=== PATIENT | female | born 1990 | race Hispanic/Latino ===

== ENCOUNTER 2020-05-23 00:46 | Emergency (ER) | payer MEDICAID, OTHER ==
[~2020-05-23 00:46] MED LIST: PREN-196 PO
[2020-05-23 01:59] LABS: BILIRUBIN,URINE Negative (NEGATIVE); COLOR,URINE Yellow (YELLOW); GLUCOSE, URINE (UA) Negative (NEGATIVE); KETONES,URINE Trace mg/dL (NEGATIVE); LEUKOCYTE ESTERASE ,URINE Large (NEGATIVE); NITRATE,URINE Negative (NEGATIVE); OCCULT BLOOD,URINE Moderate (NEGATIVE); PH,URINE 6.5 (5.0-8.0); PROTEIN,URINE POS 1+ mg/dL (NEGATIVE)
[2020-05-23 02:00] LABS: APPEARANCE,URINE SLIGHTLY CLOUDY (CLEAR)
[2020-05-23 02:02] LABS: HCG,QUAL RESULT POSITIVE (NEGATIVE)
[2020-05-23 02:09] LABS: BACTERIA,URINE Few /HPF (None Seen); SQUAMOUS EPITHELIAL CELL,UR 0-2 /HPF (0-2); WBC,URINE 26-50 /HPF (0-1)
== END 2020-05-23 02:36 | disposition home or self-care (01) ==
LOC: EDH 00:46
DX: O23.41 Unspecified infection of urinary tract in pregnancy, first trimester (principal); Z3A.13 13 weeks gestation of pregnancy
CPT/HCPCS: 81001; 81025; 87077; 87088; 87186

== ENCOUNTER 2020-11-06 02:21 | Inpatient (IN) | payer MEDICAID ==
[~2020-11-06] VITALS: Ht 162.6 cm; Wt 84.8 kg
[2020-11-06 03:04] LABS: APPEARANCE,URINE Cloudy (CLEAR); BILIRUBIN,URINE Negative (NEGATIVE); COLOR,URINE Yellow (YELLOW); GLUCOSE, URINE (UA) Negative (NEGATIVE); KETONES,URINE Negative (NEGATIVE); LEUKOCYTE ESTERASE ,URINE Moderate (NEGATIVE); NITRATE,URINE Negative (NEGATIVE); OCCULT BLOOD,URINE Negative (NEGATIVE); PH,URINE 7.5 (5.0-8.0); PROTEIN,URINE Negative (NEGATIVE)
[2020-11-06 03:12] LABS: AMPHET/METH SCREEN,URINE NEGATIVE (NEGATIVE); BARBITURATE SCREEN, URINE NEGATIVE (NEGATIVE); BENZODIAZEPINES SCREEN,URINE NEGATIVE (NEGATIVE); CANNABINOID SCREEN,URINE NEGATIVE (NEGATIVE); COCAINE SCREEN,URINE NEGATIVE (NEGATIVE); OPIATE SCREEN,URINE NEGATIVE (NEGATIVE); PHENCYCLIDINE SCREEN,URINE NEGATIVE (NEGATIVE)
[2020-11-06 03:13] LABS: AMORPHOUS SEDIMENT,UR Moderate /LPF (None Seen); BACTERIA,URINE Moderate /HPF (None Seen); RBC,URINE 0-1 /HPF (0-1); SQUAMOUS EPITHELIAL CELL,UR 0-2 /HPF (0-2)
[2020-11-06] MEDS ORDERED: OXYTOCIN-LR 20 UNITS/1000 ML 1,000 ML IV SCH ×2 (03:30→17:45)
[2020-11-06] MEDS ORDERED: LACTATED RINGERS 500 ML 500 ML IV PRN (03:30)
[2020-11-06] MEDS ORDERED: ROPIVACAINE 0.2% 100ML VIAL 100 ML EP SCH (03:30)
[2020-11-06] MEDS ORDERED: EPHEDRINE SULFATE 50 MG/ML AMPULE IVP PRN (03:30)
[2020-11-06] MEDS ORDERED: NALOXONE HCL 0.4 MG/1 ML ML IV PRN (03:30)
[2020-11-06] MEDS ORDERED: LACTATED RINGERS 1000ML 1,000 ML IV PRN (03:30)
[2020-11-06 03:33] LABS: HEMATOCRIT 33.1 % (36-48); MEAN CORPUSCULAR HEMOGLOBIN 30.3 pg (27.0-33.0); MEAN CORPUSCULAR HGB CONC 34.1 g/dL (32.0-36.0); MEAN CORPUSCULAR VOLUME 88.7 fL (79-99); RED BLOOD CELL COUNT(AUTO) 3.73 MIL/uL (4.00-5.50); RED CELL DISTRIBUTION WIDTH 13.2 % (11.0-15.5); WHITE BLOOD COUNT (AUTO) 7.2 K/uL (4.8-10.8)
[2020-11-06] MEDS: LACTATED RINGERS 1000ML 1,000 ML IV SCH ×2 (03:57→07:24)
[2020-11-06 03:58] VITALS: BP 119/73
[2020-11-06] MEDS ORDERED: MEPERIDINE-PF 25 MG/ML SYG IM PRN (04:30)
[2020-11-06] MEDS ORDERED: MEPERIDINE-PF 50 MG/ML SYG IVP PRN (04:30)
[2020-11-06] MEDS ORDERED: AMPICILLIN 2GM+NS 100ML 100 ML IV ONE (07:59)
[2020-11-06] MEDS ORDERED: AMPICILLIN 2GM+NS 100ML 100 ML IV SCH (08:12)
[2020-11-06 08:34] LABS: RAPID PLASMA REAGIN NONREACTIVE (NONREACTIVE)
[2020-11-06] MEDS ORDERED: AMPICILLIN 1GM+NS 50ML 50 ML IV SCH (12:00)
[2020-11-06 15:33] LABS: APPEARANCE,URINE Clear (CLEAR); BILIRUBIN,URINE Negative (NEGATIVE); COLOR,URINE Yellow (YELLOW); GLUCOSE, URINE (UA) Negative (NEGATIVE); KETONES,URINE Negative (NEGATIVE); LEUKOCYTE ESTERASE ,URINE Small (NEGATIVE); NITRATE,URINE Negative (NEGATIVE); OCCULT BLOOD,URINE Negative (NEGATIVE); PH,URINE 7.5 (5.0-8.0); PROTEIN,URINE Negative (NEGATIVE)
[2020-11-06] MEDS ORDERED: METHYLERGONOVINE MALEATE 0.2 MG/1 ML ML ONE (17:12)
[2020-11-06] MEDS ORDERED: LIDOCAINE HCL 1% 20 ML VIAL ONE (17:12)
[2020-11-06] MEDS ORDERED: ACETAMINOPHEN 325 MG TAB PO PRN (17:45)
[2020-11-06] MEDS ORDERED: MEASLES/MUMPS/RUBELLA VACCINE, LIVE 0.5 ML/VIAL SQ PRN (17:45)
[2020-11-06] MEDS ORDERED: WITCH HAZEL 1 PAD TP PRN (17:45)
[2020-11-06] MEDS ORDERED: LANOLIN 30GM OINTMENT TP PRN (17:45)
[2020-11-06] MEDS ORDERED: DIPH,PERTUSS(ACELL),TET VAC/PF 0.5 ML VIAL IM PRN (17:45)
[2020-11-06] MEDS ORDERED: BENZOCAINE/LANOLIN/ALOE VERA 60 ML AEROSOL TP PRN (17:45)
[2020-11-06] MEDS: IBUPROFEN 600 MG TABLET PO PRN (19:14)
[2020-11-06 20:00] VITALS: BP 120/79
[2020-11-06] MEDS: DOCUSATE SODIUM 100 MG CAP PO SCH (20:51)
[2020-11-06] MEDS: ACETAMINOPHEN WITH CODEINE 1 TAB TAB PO PRN (20:52)
[2020-11-06 21:13] VITALS: BP 119/78
[2020-11-06 22:47] VITALS: BP 117/66
[2020-11-07] MEDS: IBUPROFEN 600 MG TABLET PO PRN ×2 (01:41→13:40)
[2020-11-07 03:21] VITALS: BP 98/59
[2020-11-07 06:37] LABS: HEMATOCRIT 31.9 % (36-48); MEAN CORPUSCULAR HEMOGLOBIN 29.3 pg (27.0-33.0); MEAN CORPUSCULAR HGB CONC 33.2 g/dL (32.0-36.0); MEAN CORPUSCULAR VOLUME 88.1 fL (79-99); RED BLOOD CELL COUNT(AUTO) 3.62 MIL/uL (4.00-5.50); RED CELL DISTRIBUTION WIDTH 13.2 % (11.0-15.5); WHITE BLOOD COUNT (AUTO) 11.1 K/uL (4.8-10.8)
[2020-11-07] MEDS: ACETAMINOPHEN WITH CODEINE 1 TAB TAB PO PRN ×2 (07:17→16:13)
[2020-11-07 07:58] VITALS: BP 136/86
[2020-11-07] MEDS: DOCUSATE SODIUM 100 MG CAP PO SCH (09:00)
[2020-11-07 11:31] VITALS: BP 102/59
[2020-11-07 12:10] LABS: HEPATITIS Bs ANTIGEN SCREEN P Negative (Negative)
[2020-11-07 16:07] VITALS: BP 110/69
== END 2020-11-07 18:20 | disposition home or self-care (01) | DRG 560 ==
LOC: EDH 02:27 → LDH 02:35 → OBSVTOIN 02:35 → WSH 21:11
PROVIDERS: ADMIT Obstetrics & Gynecology; ATTEND Obstetrics & Gynecology
PROC: 3E033VJ Introduction of Other Hormone into Peripheral Vein, Percutaneous Approach (ICD-10-PCS; principal; 2020-11-06)
PROC: 10907ZC Drainage of Amniotic Fluid, Therapeutic from Products of Conception, Via Natural or Artificial Opening (ICD-10-PCS; 2020-11-06)
PROC: 10E0XZZ Delivery of Products of Conception, External Approach (ICD-10-PCS; 2020-11-06)
PROC: 3E0234Z Introduction of Serum, Toxoid and Vaccine into Muscle, Percutaneous Approach (ICD-10-PCS; 2020-11-06)
PROC: 3E0134Z Introduction of Serum, Toxoid and Vaccine into Subcutaneous Tissue, Percutaneous Approach (ICD-10-PCS; 2020-11-06)
PROC: 3E0334Z Introduction of Serum, Toxoid and Vaccine into Peripheral Vein, Percutaneous Approach (ICD-10-PCS; 2020-11-06)
DX: O36.8130 Decreased fetal movements, third trimester, not applicable or unspecified (principal); Z23 Encounter for immunization; Z37.0 Single live birth; Z3A.39 39 weeks gestation of pregnancy; Z67.11 Type A blood, Rh negative
CPT/HCPCS: 36415; 76815; 80305; 81001; 83033; 85027; 86156; 86592; 86701; 86850; 86870; 86900; 86901; 87088; 87340; 87390; A4314; G0378; J0290; J2210; J2590; J2791; J2795; J7120